=== PATIENT | female | born 1965 | race Two or more races ===

== ENCOUNTER 2017-11-17 11:00 | Inpatient (IN) | payer OTHER ==
[~2017-11-17] VITALS: Ht 154.9 cm; Wt 55.3 kg
[2017-11-21] MEDS ORDERED: TRIAMTERENE-HC1 EAC7 ORAL (14:27)
[2017-11-21] MEDS ORDERED: PROAIR HFA8.5 GM INH (14:27)
[2017-11-21] MEDS ORDERED: GABAPENTIN300 MG ORAL (14:27)
[2017-11-21] MEDS ORDERED: ADVAIR 100-501 EACH INH (14:27)
[2017-11-21] MEDS ORDERED: ADALAT20 MG ORAL (14:27)
[2017-11-22] VITALS (9 sets, daily range): BP systolic 102–127; BP diastolic 60–78
[2017-11-22] MEDS ORDERED: Vancomycin 1gm/D5W 275ml IVPB ONE ×2 (06:00)
[2017-11-22] MEDS ORDERED: Pantoprazole Inj IVP ONE (06:00)
[2017-11-22] MEDS ORDERED: Midazolam 2mg/2ml Inj ONE (11:29)
[2017-11-22] MEDS ORDERED: Pantoprazole Inj ONE (11:30)
[2017-11-22] MEDS ORDERED: Zemuron 50mg/5ml Inj IV ONE (11:31)
[2017-11-22] MEDS ORDERED: fentaNYL 100 mcg/2 mL IV ONE (11:32)
[2017-11-22] MEDS ORDERED: EPINEPHrine 1mg/1ml Amp ONE (11:33)
[2017-11-22] MEDS ORDERED: Lidocaine 1% MPF 10mg/ml 5ml ONE (11:33)
[2017-11-22] MEDS ORDERED: Bacitracin Oint 15gm Tube TOPIC ONE (11:33)
[2017-11-22] MEDS ORDERED: Gelfoam Size TOPIC ONE (11:34)
[2017-11-22] MEDS ORDERED: Bupivacaine 0.5% Inj 30 ml vial INJ ONE (11:34)
[2017-11-22] MEDS ORDERED: Bacitracin 50000 Units Vial ONE (11:34)
[2017-11-22] MEDS ORDERED: Thrombin 5000 units TOPIC ONE (11:34)
[2017-11-22] MEDS ORDERED: Gelfoam Absorbable 1gm powder pkt TOPIC ONE (11:34)
--- NOTE | 2017-11-22 11:39 | Pre-Procedure Note/Attestation ---
Pre-Procedure Note/Attestation Complete Prior to Procedure Planned Procedure: bilateral Procedure Narrative: Posterior cervical decompression C4-5 and C5-6 on the left side and posterolateral fusion and lateral mass instrumented fixation C4 to C6, with use of autograft and allograft. Attestation I attest that I discussed the nature of the procedure; its benefits; risks and complications; and alternatives (and the risks and benefits of such alternatives ), prior to the procedure, with the patient (or the patient's legal inbound sales representative). I attest that, if there was a reasonable possibility of needing a blood transfusion, the patient (or the patient's legal inbound sales representative) was given the [place] [employer] standardized written summary, pursuant to the Terrance Raquel Blood Safety Act ([place] Health and Safety Code # 1645, as amended). I attest that I re-evaluated the patient just prior to the surgery and that there has been no change in the patient's H&P, except as documented below: Heena Almendarez MD Nov 22, 2017 11:39
[2017-11-22] MEDS ORDERED: Thrombin 5000 units spray kit TOPIC ONE (11:50)
[2017-11-22] MEDS ORDERED: Propofol 1,000mg/ 100ml btl IV ONE (12:00)
[2017-11-22] MEDS ORDERED: Dexamethasone 4mg/ml vial ONE (12:00)
[2017-11-22] MEDS ORDERED: NS Irrig 1000ml ONE (12:00)
[2017-11-22] MEDS ORDERED: Sterile Water Irrig 1000ml IRRIG ONE (12:00)
[2017-11-22] MEDS ORDERED: LR 1000ml ONE (12:00)
[2017-11-22] MEDS ORDERED: Ketorolac 30mg Inj ONE (12:00)
[2017-11-22] MEDS ORDERED: Succinylcholine 20mg/ml 10ml vial ONE (12:00)
[2017-11-22] MEDS ORDERED: Morphine Sulfate 10mg/ml Inj ONE (13:27)
[2017-11-22] MEDS ORDERED: Sodium Chloride 10ml vial INJ ONE (13:28)
[2017-11-22] MEDS ORDERED: Glycopyrrolate 0.2mg/ml 1ml Vial ONE (13:28)
--- NOTE | 2017-11-22 13:50 | Anethesia Preoperative Eval ---
Anesthesia Pre-op PMH/ROS General Date of Evaluation: Nov 22, 2017 Time of Evaluation: 11:32 Anesthesiologist: robbi ASA Score: ASA 3 Mallampati Score Class I : Soft palate, uvula, fauces, pillars visible Class II: Soft palate, uvula, fauces visible Class III: Soft palate, base of uvula visible Class IV: Only hard plate visible Mallampati Classification: Class II Surgeon: Erickson Diagnosis: Cervical radiculopathy Surgical Procedure: Posterior cervical laminotomy with decompression C4 to C6 Anesthesia History: none Social History: current smoker Family History: no anesthesia problems Allergies: Coded Allergies: No Known Allergies (Unverified , 11/22/17) Medications: see eMAR Past Medical History Cardiovascular: Reports: HTN - stable on meds; Denies: CAD, MA, valve dz, arrhythmia, other Pulmonary: Reports: COPD - mild dyspnea at rest Oxymetry on room air 94-95%; Denies: asthma, TOSIN, other Gastrointestinal/Genitourinary: Reports: GERD; Denies: CRI, ESRD, other Neurologic/Psychiatric: Reports: depression/anxiety, other - chronic pain; Denies: dementia, CVA, TIA Endocrine: Denies: DM, hypothyroidism, steroids, other HEENT: Denies: cataract (L), cataract (R), glaucoma, [place] (L), [place] (R), other Hematology/Immune: Denies: anemia, DVT, bleeding disorder, other Musculoskeletal/Integumentary: Denies: OA, RA, DJD, DDD, edema, other PMH Narrative: as above PSxH Narrative: ACDF Hysterectomy. Anesthesia Pre-op Phys. Exam Physician Exam Last Vital Signs Date Time Temp Pulse Resp B/P (MAP) Pulse Ox O2 Delivery O2 Flow Rate FiO2 11/22/17 10:33 Room Air 11/22/17 10:32 98.3 105 20 127/77 (94) 96 98.3 Constitutional: NAD Neurologic: CN 2-12 intact Cardiovascular: RRR, no M/R/G Respiratory: other - some wheezing bilaterally Gastrointestinal: S/NT/ND Airway Exam Mallampati Score: Class II MO: limited Neck: stiff ROM: limited Teeth: missing Dentures: no upper, no lower Anesthesia Pre-op A/P Labs see chart, on CBC relative polycythemia, most likely secondary to dehydration, hypokalemia on BMP. Studies Pre-op Studies: EKG - NSR, CXR - WNL Risk Assessment & Plan Assessment: ASA 3 Plan: GA with ETT, prone position neuromonitoring. Status Change Before Surgery: No Pre-Antibiotics Drug: Vancomycin 1gr, Gentamycin 80 mg. Given Within 1 Hr of Incision: Yes Time Given: 12:56 Lon Templeton MD Nov 22, 2017 13:50
[2017-11-22] MEDS ORDERED: LR 1000ml 1,000 ML IVLG SCH (13:51)
[2017-11-22] MEDS ORDERED: Meperidine 50mg/ml Inj(FOR RIGORS ONLY) IV PRN (14:00)
[2017-11-22] MEDS ORDERED: fentaNYL 100 mcg/2 mL IV PRN (14:00)
[2017-11-22] MEDS ORDERED: Midazolam 2mg/2ml Inj IVP PRN (14:00)
[2017-11-22] MEDS ORDERED: Metoclopramide 10mg/2ml Inj IVP PRN (14:00)
[2017-11-22] MEDS ORDERED: DiphenhydrAMINE 50mg/ml Inj IVP PRN (14:00)
[2017-11-22] MEDS ORDERED: Acetaminophen (Non formulary) 100 ML IV ONE (14:00)
--- NOTE | 2017-11-22 16:13 | Brief Operative Note ---
Immediate Post Operative Note Operative Note Chief Complaint: Intractabe neck pain and left arm pain Pre-op Diagnosis: 1. Status post C4-5 and C5-6 anterior cervical fusion with pseudoarthrosis 2. Left upper extremity radiculopath with severe C4-5 and C5-6 foraminal stenosis. 3. Lack of improvement from conservative care and medical therapy. Procedure: 1. Posterior left laminoforaminotomy with complete decompression of the exiting nerve root at C4-5 and C5-6 levels. 2. posterolateral arthrodesis at C4-5 and C5-6 level 3. Lateral mass fixation at C4, C5 and C6 on th eright using 12 mm and 10 mm screws and 50 mm bennie- [place] system 4. [place] local bone fron lamina for grafting 5. Neurolysis of the left C5 and C6 roots 6. Microdissection 7. Neuromonitoring 8. Fluoroscopic localization 9. Modifier 22 for degree of difficulty Post-op Diagnosis: same as pre-op Findings: consistent w/pre-op dx studies Surgeon: Heena Almendarez M.D. K9 Handler: Bryson Wellington MD Anesthesiologist: Dr. Templeton Anesthesia: general Specimen: none Complications: none Condition: stable Fluids: 1.0 liter Estimated Blood Loss: volume - 100 cc Drains: none Implant(s) used?: Yes - [place] lateral mass system. Heena Alford MD Nov 22, 2017 16:13
--- NOTE | 2017-11-22 16:25 | Immediate Post-Op Evaluation ---
Immediate Post-Op Evalulation Immediate Post-Op Evalulation Procedure: Posterior cervical laminotomy with decompression and fusion C4 to C6 Date of Evaluation: Nov 22, 2017 Time of Evaluation: 16:23 IV Fluids: 1400 Blood Products: None Estimated Blood Loss: 50 Urinary Output: 400 Blood Pressure Systolic: 107 Blood Pressure Diastolic: 76 Pulse Rate: 96 Respiratory Rate: 20 O2 Sat by Pulse Oximetry: 96 Temperature (Fahrenheit): 97.6 Pain Score (1-10): 2 Nausea: No Vomiting: No Complications [id number] Patient Status: reacts, patent, extubated, none Hydration Status: adequate Lon Templeton MD Nov 22, 2017 16:25
--- NOTE | 2017-11-22 16:44 | Diagnostic Imaging Report ---
Indication: Pain, intraoperative imaging Technique: Intraoperative images Comparison: none Findings: Intraoperative images demonstrate surgical tool projected posterior to C7. There is pre-existing anterior fusion hardware bridging C4-5 and C5-6. Subsequent images document posterior fusion of C4, C5, and C6. Impression: Intraoperative images, as described
[2017-11-22] MEDS ORDERED: Albuterol 90mcg Inhaler 8gm INH PRN (16:45)
[2017-11-22] MEDS ORDERED: Milk of Magnesia 30ml Ud ORAL PRN (16:45)
[2017-11-22] MEDS ORDERED: HYDROmorphone 1mg/ml Carpuject IVP PRN (16:45)
[2017-11-22] MEDS ORDERED: Cyclobenzaprine 10mg Tab ORAL PRN (16:45)
--- NOTE | 2017-11-22 16:59 | General Progress Note ---
Progress Note Progress Note Neurosuregry recovery room S/ No arm pain. Incisonal pain under control O/ Last 24 Hour Vital Signs Date Time Temp Pulse Resp B/P (MAP) Pulse Ox O2 Delivery O2 Flow Rate FiO2 11/22/17 16:30 88 20 108/69 96 Nasal Cannula 3 11/22/17 16:25 207.7 96 20 96 11/22/17 16:15 100 20 103/74 96 Nasal Cannula 3 11/22/17 16:10 102 20 117/70 96 Nasal Cannula 3 11/22/17 16:05 98.2 104 20 107/72 96 Simple Mask 8 98.2 11/22/17 10:33 Room Air 11/22/17 10:32 98.3 105 20 127/77 (94) 96 98.3 Alert and oriented x4 moves al extremities well incision is dry doing well to floor after clearance by recovery room. Heena Almendarez MD Nov 22, 2017 16:59
[2017-11-22] MEDS: HYDROcodone/Acetamin 7.5/325 tab ORAL PRN ×2 (17:50→21:08)
[2017-11-22] MEDS ORDERED: NS w/KCl 20mEq 1,000 ML IV SCH (18:00)
[2017-11-22] MEDS ORDERED: Docusate 100mg cap ORAL SCH (18:00)
[2017-11-22] MEDS: Advair 100/50 Inhaler - 14 dose INH SCH (18:00)
[2017-11-22] MEDS: Docusate Sod/Senna tab ORAL SCH (18:01)
[2017-11-22] MEDS ORDERED: Acetaminophen (Non formulary) 100 ML IV SCH (18:30)
[2017-11-22] MEDS ORDERED: Albuterol 90mcg Inhaler 8gm INH SCH (19:15)
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
[2017-11-23 00:17] VITALS: BP 113/63
[2017-11-23] MEDS: Vancomycin 1 GM in D5W 275 ML IVPB SCH ×2 (01:29→12:42)
[2017-11-23] MEDS: HYDROcodone/Acetamin 7.5/325 tab ORAL PRN ×3 (01:36→11:07)
[2017-11-23 04:12] VITALS: BP 124/73
--- NOTE | 2017-11-23 06:37 | 48 Hour Post Anesthesia Eval ---
Post Anesthesia Evaluation Procedure: Posterior cervical laminotomy with decompression and fusion C4 to C6 Date of Evaluation: Nov 23, 2017 Time of Evaluation: 06:30 Blood Pressure Systolic: 124 0: 73 Pulse Rate: 64 Respiratory Rate: 17 Temperature (Fahrenheit): 98 O2 Sat by Pulse Oximetry: 100 Airway: patent Nausea: No Vomiting: No Pain Intensity: 0 Hydration Status: adequate Cardiopulmonary Status: at baseline Mental Status/LOC: patient returned to baseline Post-Anesthesia Complications: 0 Follow-up care needed: N/A - further care as per primary team Felicity Black MD Nov 23, 2017 06:37
[2017-11-23 07:08] LABS: ANION GAP 8 mmol/L (5-15); BLOOD UREA NITROGEN 12 mg/dL (7-18); CALCIUM 7.8 MG/DL (8.5-10.1); CARBON DIOXIDE 28 MMOL/L (21-32); CHLORIDE 99 MMOL/L (98-107); CREATININE 0.9 MG/DL (0.55-1.30); POTASSIUM 3.4 MMOL/L (3.5-5.1); SODIUM 135 MMOL/L (136-145)
[2017-11-23 08:00] VITALS: BP 104/67
[2017-11-23] MEDS: Docusate Sod/Senna tab ORAL SCH (08:37)
[2017-11-23] MEDS ORDERED: Triamterene/Hctz 37.5/25 cap ORAL SCH ×2 (09:00)
[2017-11-23] MEDS ORDERED: Advair 100/50 Inhaler - 14 dose INH SCH (09:00)
[2017-11-23] MEDS ORDERED: NIFEdipine 10mg cap ORAL SCH (09:00)
[2017-11-23] MEDS: Advair 100/50 Inhaler - 14 dose INH SCH (10:27)
[2017-11-23 12:00] VITALS: BP 110/79
[2017-11-23] MEDS ORDERED: Tubing IV Secondary IV ONE (15:49)
--- NOTE | 2017-11-24 08:15 | Discharge Summary ---
DATE OF ADMISSION: 11/22/2017 DATE OF DISCHARGE: 11/23/2017 HISTORY: The patient 00:14 was admitted to the hospital with cervical radiculopathy and underwent anterior cervical diskectomy and fusion. The patient was discharged home to have followup with Dr. Almendarez. The patient underwent surgery without any difficulty. Postoperatively, the patient was taken to the PACU and subsequently brought into the floor. The patient tolerated the procedure well. Upon discharge, the patient was discharged to have followup with Dr. Almendarez. DISCHARGE MEDICATIONS: The patient will be on [place] 10/325 mg q.6 h. p.r.n. pain. Prescription for 01:02 was given to the patient. The patient also will be needing antibiotic prophylaxis for the procedure. The patient understands. Ruperto Phillips M.D. DR: NIKOLAI JOB#: [id number] CC: Heena Almendarez M.D.; Fax#: [phone]
== END 2017-11-23 15:50 | disposition home or self-care (01) | DRG 30 ==
LOC: SDSOVERFLO 11-22 09:59 → 3E 11-22 17:15
PROC: 0RG207J Fusion of 2 or more Cervical Vertebral Joints with Autologous Tissue Substitute, Posterior Approach, Anterior Column, Open Approach (ICD-10-PCS; principal; 2017-11-22 11:30)
PROC: 00NW0ZZ Release Cervical Spinal Cord, Open Approach (ICD-10-PCS; principal; 2017-11-22 11:30)
PROC: 4A11X4G Monitoring of Peripheral Nervous Electrical Activity, Intraoperative, External Approach (ICD-10-PCS; principal; 2017-11-22 11:30)
DX: M54.12 Radiculopathy, cervical region (principal); Z98.1 Arthrodesis status; G89.21 Chronic pain due to trauma
CPT/HCPCS: 36415; 72040; 76001; 80048; 86850; 86900; 86901; 87081; 94003; 94150; 94640; C9399; J2250; J2405